=== PATIENT | male | born 1975 | race Caucasian/White ===

== ENCOUNTER 2017-10-02 21:01 | Emergency (ER) | payer MEDICAID ==
[~2017-10-02] VITALS: Ht 175.3 cm; Wt 77.1 kg
[~2017-10-02 21:01] MED LIST: ACETAMINOPHEN-1 EAC1 PO; ADDERALL 10 MG10 MG PO; CELEXA; CLONAZEPAM; CLONAZEPAM PO; DESYREL; DESYREL50 MG PO; HALDOL; HALDOL PO; IBUPROFEN 800800 MG PO; ROBAXIN500 MG PO
[2017-10-02 21:23] LABS: ABSOLUTE BASOPHILS 0.1 thou/uL (0.0-0.2); ABSOLUTE EOSINOPHILS 0.2 thou/uL (0.0-0.7); ABSOLUTE LYMPHOCYTES 2.3 thou/uL (0.8-5.3); ABSOLUTE MONOCYTES 0.8 thou/uL (0.0-1.2); ABSOLUTE NEUTROPHILS 4.1 thou/uL (1.6-8.1); BASOPHILS 0.7 %; EOSINOPHILS 3.3 %; HEMATOCRIT 42.4 % (42.0-52.0); HEMOGLOBIN 13.8 gm/dL (14.0-18.0); LYMPHOCYTES 30.8 %; MCH 27.6 pg (26.0-34.0); MCHC 32.7 g/dL (28.0-37.0); MCV 84.4 fL (80.0-100.0); MONOCYTES 10.7 %; MPV 7.2 fl. (7.2-11.1); NUCLEATED RBCS 0 /100WBC; PLATELET COUNT* 289 thou/uL (150-400); POLYS 54.5 %; RBC 5.02 mil/uL (4.50-6.00); RDW-CV 14.6 % (10.5-14.5); WBC 7.5 thou/uL (4.0-11.0)
[2017-10-02 21:32] LABS: CREATININE 0.9 mg/dL (0.6-1.3); POTASSIUM 3.6 mmol/L (3.5-5.1)
[2017-10-02 21:37] LABS: SALICYLATE < 2.8 mg/dL (2.8-20.0); TOTAL BILIRUBIN 0.7 mg/dL (<0.1-1.0); TOTAL PROTEIN 7.4 g/dL (6.4-8.2)
[2017-10-02 21:40] LABS: ACETAMINOPHEN < 2 ug/mL (10-30); ALCOHOL < 10 mg/dL (<10)
[2017-10-02 23:14] LABS: AMP/METHAMP POSITIVE (Negative); BARBITURATES Negative (Negative); BENZODIAZEPINES Negative (Negative); COCAINE Negative (Negative); METHADONE Negative (Negative); OPIATES Negative (Negative); PCP Negative (Negative); THC POSITIVE (Negative)
[2017-10-03 00:13] VITALS: BP 130/79
== END 2017-10-03 00:14 | disposition home or self-care (01) ==
LOC: M.ERS 21:01
PROVIDERS: Emergency Medicine
DX: F29 Unspecified psychosis not due to a substance or known physiological condition (principal); F19.10 Other psychoactive substance abuse, uncomplicated; F31.9 Bipolar disorder, unspecified; Z91.041 Radiographic dye allergy status

== ENCOUNTER 2018-11-04 18:52 | Emergency (ER) | payer MEDICAID ==
[~2018-11-04] VITALS: Ht 175.3 cm; Wt 90.7 kg
[2018-11-04] MEDS ORDERED: NEURONTIN 300M300 M2 PO (19:11)
[2018-11-04] MEDS ORDERED: REMERON15 MG PO (19:11)
[2018-11-04 19:25] LABS: URINE BILIRUBIN NEGATIVE (Negative); URINE BLOOD NEGATIVE (Negative); URINE CLARITY CLEAR; URINE COLOR YELLOW; URINE GLUCOSE-RANDOM NEGATIVE (Negative); URINE KETONES NEGATIVE (Negative); URINE LEUKOCYTES-REFLEX NEGATIVE (Negative); URINE NITRITE-REFLEX NEGATIVE (Negative); URINE PROTEIN NEGATIVE (Negative); URINE UROBILINOGEN 0.2 E.U./dl (0.2-1.0)
[2018-11-04 19:33] LABS: AMP/METHAMP Negative (Negative); BARBITURATES Negative (Negative); BENZODIAZEPINES Negative (Negative); COCAINE Negative (Negative); METHADONE Negative (Negative); OPIATES Negative (Negative); PCP Negative (Negative); THC POSITIVE (Negative)
[2018-11-04 19:50] LABS: ABSOLUTE BASOPHILS 0.1 thou/uL (0.0-0.2); ABSOLUTE EOSINOPHILS 0.2 thou/uL (0.0-0.7); ABSOLUTE LYMPHOCYTES 2.6 thou/uL (0.8-5.3); ABSOLUTE MONOCYTES 0.8 thou/uL (0.0-1.2); ABSOLUTE NEUTROPHILS 6.1 thou/uL (1.6-8.1); BASOPHILS 0.8 %; EOSINOPHILS 2.5 %; HEMATOCRIT 40.5 % (42.0-52.0); HEMOGLOBIN 13.2 gm/dL (14.0-18.0); LYMPHOCYTES 26.4 %; MCH 27.3 pg (26.0-34.0); MCHC 32.7 g/dL (28.0-37.0); MCV 83.6 fL (80.0-100.0); MONOCYTES 8.2 %; MPV 7.1 fl. (7.2-11.1); NUCLEATED RBCS 0 /100WBC; PLATELET COUNT* 323 thou/uL (150-400); POLYS 62.1 %; RBC 4.85 mil/uL (4.50-6.00); RDW-CV 14.7 % (10.5-14.5); WBC 9.8 thou/uL (4.0-11.0)
[2018-11-04 19:58] LABS: CALCIUM 9.4 mg/dL (8.5-10.1); CREATININE 0.8 mg/dL (0.6-1.3); POTASSIUM 3.8 mmol/L (3.5-5.1); PROTIME 10.6 Seconds (9.20-11.50)
[2018-11-04 20:03] LABS: ALBUMIN 3.6 g/dL (3.4-5.0); TOTAL BILIRUBIN 0.1 mg/dL (<0.1-1.0)
[2018-11-04 20:06] LABS: SALICYLATE 2.9 mg/dL (2.8-20.0)
[2018-11-04 20:07] LABS: ACETAMINOPHEN < 2 ug/mL (10-30); ALCOHOL < 10 mg/dL (<10)
[2018-11-06 15:10] VITALS: BP 141/80
--- NOTE | 2018-11-06 16:56 | EKG ---
[place] [address] ELECTROCARDIOGRAM REPORT Name: MERCEDES MONACO JR Room: [facility]#: [id number] Admission: 11/04/18 Attend Phys: Discharge: 11/06/18 Date of : 79 Report #: [id number] THIS REPORT FOR: //name// [facility] ED Test Date: 2018-11-04 Test Time: 19:28:42 Pat Name: MERCEDES MONACO Department: Room: Gender: M [employer]: BUTCH : 1975 Requested By: Ludmila Sands Order Number: [id number] MD: Jama Huffman Measurements Intervals [place] Rate: 89 P: 60 FL: 152 QRS: 35 QRSD: 96 T: 20 QT: 343 QTc: 418 Interpretive Statements Sinus rhythm Compared to ECG 01/30/2014 15:32:36 Sinus arrhythmia no longer present Electronically Signed On 11-06-2018 16:56:35 CDT by Jama Huffman [email or web address] <ELECTRONICALLY SIGNED> By: Jama Huffman MD, [facility] 11/06/18 [id number] [id number] 27 Jama Huffman MD, FACC /EPI
== END 2018-11-06 15:10 | disposition short-term general hospital (02) ==
LOC: M.ERS 18:52
PROVIDERS: Emergency Medicine
DX: F32.9 Major depressive disorder, single episode, unspecified (principal); R45.851 Suicidal ideations; Z91.041 Radiographic dye allergy status